=== PATIENT | female | born 1985 | race Native Hawaiian/Other Pacific Islander ===

== ENCOUNTER 2017-06-08 07:09 | Inpatient (IN) | payer OTHER ==
[2017-06-08 07:42] VITALS: BMI 43.0
[2017-06-08] MEDS ORDERED: ceFAZolin 2 GM in Sodium Chloride 0.9% 100 ML IVPB ONE (07:42)
[2017-06-08] MEDS ORDERED: Morphine 1 mg/ml preservative-free Inj(Duramorph) ONE (07:45)
[2017-06-08] MEDS ORDERED: ePHEDrine 50 mg/ml Inj ONE (07:50)
[2017-06-08] MEDS: Lactated Ringer's 1,000 ML IV SCH ×2 (08:00→11:20)
[2017-06-08] MEDS ORDERED: Oxytocin 30 units/LR 500ML 30 U/500 ML BAG IV ONE (08:16)
--- NOTE | 2017-06-08 08:18 | OBADHP ---
Datetime: 06/08/2017 07:57 Admit Comment, IP Provider: Ange Braden at 36 weeks and 2 days gestational age presents to the ED comp laining of gush of fluid. Patient also complains of occasional contraction. No vaginal bleeding. Yissel ent reports good movement. Otherwise, patient without complaints. records reviewed. Past medical history gestational diabetes, class AI Past surgical history 1 Medications vitamins No known drug allergies Social history no tobacco, no alcohol, no drugs Physical exam: Deferred physical exam findings Assessment: 001 at 36 weeks and 2 days gestational age with spontaneous rupture of membranes and prior C -section. heart tracing reassuring. Maternal well-being and well-being reassuring at thi s time. Plan: Discussed with patient options including expected management and trial of labor as well as repeat section. After discussion of options, patient opting for repeat section. Discussed with patient the risks, benefits, alternatives of surgery. All patient questions answered. Anesthesia notified. Pelvic Type - PN: Adequate Extremities - PN: Normal Abdomen - PN: Normal Back - PN: Normal Breast - PN: Normal Lungs - PN: Normal Heart - PN: Normal Thyroid - PN: Normal Neurologic - PN: Normal HEENT - PN: Normal General - PN: Normal FHR - Baseline A Provider: 140s Membranes, Provider: Intact Contraction Comments Provider: irregular Comments, ACOG Physical Exam: Cervix: Long, closed, posterior Positive fluid, grossly ruptured on exam No blood, no discharge Pool Provider: Negative IP Hx Assessment: The History has been Reviewed and is Current Vital Signs Provider: Reviewed; Within Normal Limits IP Chief Complaint: Uterine contractions; Suspected ruptured membranes NICHD Variability Prov Fetus A: Moderate 6-25bpm NICHD Accel Fetus A IP Provider: [id number] FHR Category Provider Fetus A: Category I NICHD Decel Fetus A IP Provider: None Dilatation, Provider: 0 Effacement, Provider: 0 Station, Provider: -3 Genitourinary Exam: Normal DTRs - PN: Normal EGA AdmitDate IP: 36.2 IP Adm Impression: , intrauterine ; No Active Labor; Ruptured Membranes IP Admit Plan: Admit to unit; Initiate Section protocol
[2017-06-08 08:20] LABS: BASO % 0.2 % (0.0-2.0); EOS # 0.1 K/uL (0.0-0.7); EOS % 0.8 % (0.0-4.0); HEMATOCRIT 34.6 % (34.0-47.0); LYMPH # 1.4 K/uL (1.0-4.3); LYMPH % 17.8 % (20.0-40.0); MEAN CELL VOLUME 74.2 fl (81.0-99.0); MEAN CORPUSCULAR HEMOGLOBIN 23.7 pg (27.0-31.0); MEAN CORPUSCULAR HGB CONC 31.9 g/dL (33.0-37.0); MEAN PLATELET VOLUME 8.9 fl (7.2-11.7); MONO # 0.5 K/uL (0.0-0.8); MONO % 6.3 % (0.0-10.0); NEUT # 6.1 K/uL (1.8-7.0); NEUT % 74.9 % (50.0-75.0); RED CELL DISTRIBUTION WIDTH 16.3 % (11.5-14.5); WHITE BLOOD COUNT 8.2 K/uL (4.8-10.8)
[2017-06-08 08:33] LABS: BLOOD UREA NITROGEN 7 mg/dl (7-17); CALCIUM 9.2 mg/dL (8.4-10.2); CARBON DIOXIDE 20 mmol/L (22-30); CHLORIDE 107 mmol/L (98-107); GFR AFRICAN-AMERICAN > 60; GLUCOSE,RANDOM 108 mg/dL (65-105); POTASSIUM 3.9 MMOL/L (3.6-5.0); SODIUM 136 mmol/l (132-148)
[2017-06-08] MEDS ORDERED: Oxycodone/Acetaminophen 5/325 mg Tab PO PRN ×3 (09:34→14:07)
--- NOTE | 2017-06-08 09:44 | OBDS ---
DELIVERY PERSONNEL Delivery Doctor: Torito Christy MD Metal Temperer: Yolande Edward RN Anesthesiologist: Tulio Davis MD MATERNAL INFORMATION Delivery Anesthesia: Spinal Medications in Delivery: 30 units pitocin in 500 ml lr Estimated Blood Loss (ml): 800 Placenta Cultured: Yes Maternal Complications: None Provider Comments: Repeat low flap transverse via Pfannenstiel incision. Patient delivered viable infant male with Apgars of 9 and 9 at one and 5 minutes respectively. Nor mal uterus, normal tubes and ovaries bilaterally. Moderate amount of intra-abdominal and pelvic adhes ions. Estimated blood loss 800 mL Fluids 1500 mL lactated Ringer's Urine output 300 mL of clear urine at end of procedure No complications LABOR SUMMARY EDC: 07/04/2017 00:00 No. Babies in Womb: 1 Attempted: No Labor Anesthesia: Intrathecal LABOR INFORMATION Reason for Induction: Not Applicable Oxytocin: N/A Group B Beta Strep: Done, Result Unknown Antibiotics # of Doses: 1 Steroids Given: None Reason Steroids Not Administered: Not Applicable MEMBRANES Membranes Rupture Method: Spontaneous Rupture of Membranes: 06/08/2017 06:00 Length of Rupture (hrs): 2.92 Amniotic Fluid Color: Clear Amniotic Fluid Amount: Small Amniotic Fluid Odor: Normal STAGES OF LABOR Stage 3 hrs: 0 Stage 3 min: 1 VAGINAL DELIVERY Episiotomy: None Laceration Extension: N/A Laceration Type: None Sponge Count Correct: N/A CSECTION DELIVERY Primary Indication: Repeat Elective Secondary Indication: Other Other Secondary Indication: SROM CSection Urgency: Non Elective CSection Incidence: Repeat Labor: Labor Elective: Nonelective CSection Incision: Lower Uterine Transverse BABY A INFORMATION Delivery Date/Time: 06/08/2017 08:55 Method of Delivery: Born in Route : No : N/A Forceps: N/A Vacuum Extraction: N/A Shoulder Dystocia : No SHOULDER DYSTOCIA BABY A Delivery Date/Time: 06/08/2017 08:55 PRESENTATION/POSITION BABY A Presentation: Cephalic Cephalic Presentation: Vertex Vertex Position: Left Occipital Anterior Breech Presentation: N/A PLACENTA INFORMATION BABY A Placenta Delivery Time : 06/08/2017 08:56 Placenta Method of Delivery: Spontaneous Placenta Status: Delivered SCORES BABY A Heart Rate 1 min: >100 bpm Resp Effort 1 min: Good Cry Reflex Irritability 1 min: Cough or Sneeze or Pulls Away Muscle Tone 1 min: Active Motion Color 1 min: Body [employer], Extremities Blue SCORE 1 MIN: 9 INFANT INFORMATION BABY A Gestational Age at Delivery: 36.2 Gestational Status: Outcome : Liveborn Condition : Stable Infant Sex: Male WEIGHT/LENGTH BABY A Birthweight (gms): 3400 Weight (lb): 7 Weight (oz): 8 CORD INFORMATION BABY A No. Cord Vessels: 3 Nuchal Cord : N/A Cord Blood Taken: Yes Suction: Mouth; Nose ASSESSMENT BABY A Complications: None Physical Findings at Delivery: Other Physical Findings Other: L Club Foot Infant Respirations: Appears Normal Director Of Bands/ALS Called : No Care By: Nisa Saucedo RN/Dr Villarreal Transferred To: Nursery
[2017-06-08] MEDS ORDERED: Simethicone 80 mg Chewtab PO SCH (10:00)
[2017-06-08] MEDS ORDERED: Lactated Ringer's 1,000 ML IV SCH ×2 (12:00→14:07)
[2017-06-08] MEDS ORDERED: DiphenhydrAMINE 50 mg/ml Inj ONE (12:07)
[2017-06-08] MEDS ORDERED: DiphenhydrAMINE 50 mg/ml Inj IVP PRN ×2 (12:15→14:07)
[2017-06-08] MEDS: Simethicone 80 mg Chewtab PO SCH ×2 (17:49→21:20)
[2017-06-08] MEDS: Oxycodone/Acetaminophen 5/325 mg Tab PO PRN (21:23)
[2017-06-09 00:40] VITALS: BP 117/76; PULSE 100; RESP 20; TEMP 98.5; O2SAT 98
[2017-06-09] MEDS: Oxycodone/Acetaminophen 5/325 mg Tab PO PRN ×4 (03:02→22:02)
[2017-06-09] MEDS: Simethicone 80 mg Chewtab PO SCH ×4 (04:15→22:00)
[2017-06-09 07:50] LABS: HEMATOCRIT 28.3 % (34.0-47.0); MEAN CELL VOLUME 74.1 fl (81.0-99.0); MEAN CORPUSCULAR HEMOGLOBIN 23.8 pg (27.0-31.0); MEAN CORPUSCULAR HGB CONC 32.1 g/dL (33.0-37.0); RED CELL DISTRIBUTION WIDTH 16.8 % (11.5-14.5); WHITE BLOOD COUNT 9.9 K/uL (4.8-10.8)
[2017-06-09] MEDS ORDERED: Enoxaparin 40 mg Syringe SC SCH (09:00)
[2017-06-09] MEDS: Enoxaparin 40 mg Syringe SC SCH (11:00)
--- NOTE | 2017-06-09 11:52 | OBPPN ---
Datetime: 06/09/2017 11:48 PP Pain Prov: Within normal limits PP Nausea Prov: Denies PP Flatus Prov: Yes PP BM Prov: No PP Breasts Prov: Normal PP Heart Prov: Normal PP Lungs Prov: Normal PP Abdomen/Uterus Prov: Normal PP Lochia Prov: Normal PP Vulva/Perineum Prov: Normal PP CVA Tenderness Prov: Normal PP Extremities Prov: Normal PP C/S Incision Prov: Normal PP Progress Prov: Normal PP Impression Prov: Normal progression PP Plan Prov: Continue present management PP Progress Note Prov: She feels fine. No probelms this AM. No SOB; no Dizziness / A: S/P day 1 repeat Anemia Asymptomatic PLAN: Cont postop care Vital Signs Provider PP: Reviewed; Within Normal Limits
[2017-06-10] MEDS: Oxycodone/Acetaminophen 5/325 mg Tab PO PRN ×3 (05:15→18:14)
[2017-06-10] MEDS: Simethicone 80 mg Chewtab PO SCH ×4 (05:16→21:24)
[2017-06-10] MEDS: Enoxaparin 40 mg Syringe SC SCH (09:32)
--- NOTE | 2017-06-10 10:47 | OBPPN ---
Datetime: 06/10/2017 10:42 PP Pain Prov: Within normal limits PP Nausea Prov: Denies PP Flatus Prov: Yes PP Breasts Prov: Not Done PP Heart Prov: Normal PP Lungs Prov: Normal PP Abdomen/Uterus Prov: Normal PP Lochia Prov: Not Done PP Vulva/Perineum Prov: Not Done PP CVA Tenderness Prov: Normal PP Extremities Prov: Normal PP C/S Incision Prov: Normal PP Impression Prov: Normal progression PP Progress Note Prov: Patient doing well pain well controlled ambulating tolerating diet and voidin g without difficulty passing flatus Vital signs stable afebrile Uterus firm below the umbilicus Incision clean dry and intact Extremities no Homans Postoperative day #2 Encourage ambulation Analgesia as needed Anticipate discharge in a.m. Vital Signs Provider PP: Reviewed
[2017-06-11] MEDS: Simethicone 80 mg Chewtab PO SCH ×2 (05:10→10:05)
[2017-06-11] MEDS: Enoxaparin 40 mg Syringe SC SCH (10:09)
--- NOTE | 2017-06-11 12:58 | OBPPN ---
Datetime: 06/11/2017 12:54 PP Pain Prov: Within normal limits PP Nausea Prov: Denies PP Flatus Prov: Yes PP Breasts Prov: Normal PP Heart Prov: Normal PP Lungs Prov: Normal PP Abdomen/Uterus Prov: Normal PP Lochia Prov: Normal PP Vulva/Perineum Prov: Normal PP CVA Tenderness Prov: Normal PP Extremities Prov: Normal PP Comments Phys Exam Prov: Fundus firm under umbilicus Incision clean/dry/intact PP Impression Prov: Normal progression PP Plan Prov: Continue present management PP Progress Note Prov: Patient denies CP, no SOB, no N/V, tolerating PO diet, ambulating/voiding wel l, mild lochia, +flatus, +BM, abdominal pain tolerable with meds A/P POD #3 1. Discharge patient home 2. Discharge instructions reviewed IP PP Procedures: None Vital Signs Provider PP: Reviewed; Within Normal Limits
--- NOTE | 2017-07-11 19:45 | OP ---
DATE OF OPERATION: 06/08/2017 PREOPERATIVE DIAGNOSES: Prior caesarean section, active labor, spontaneous rupture of membranes. OPERATION PERFORMED: Repeat low-flap transverse section via Pfannenstiel incision. OPERATIVE FINDINGS: Viable male with Apgars of 9 and 9 at 1 and 5 minutes respectively, normal uterus, normal tubes, and ovaries bilaterally. Moderate amount of intraabdominal and pelvic adhesions. ESTIMATED BLOOD LOSS: 800 mL. FLUID: 1500 mL of lactated Ringer's. URINE OUTPUT: 300 mL of clear urine at the end of procedure. SURGEON: Dr. Torito Christy. COMMUNITY RELATIONS ASSISTANT: Dr. Nghia Yuen. Dr. Yuen was present from the beginning of the procedure to the end of procedure. Dr. Dr. Yuen was integral in exposing the surgical field, controlling intraoperative bleeding, removal of adhesions, and manual delivery of the infant. ANESTHESIA: Spinal. ANESTHESIOLOGIST: Dr. Davis. COMPLICATIONS: None. DESCRIPTION OF PROCEDURE: The patient was taken to the operating room, where spinal anesthesia was found to be adequate. The patient was prepped and draped in normal sterile fashion in the dorsal supine position with leftward tilt. A Pfannenstiel skin incision was made with scalpel. This was carried down through to the underlying layer of fascia with scalpel. Midline dissection was made in fascial layer with the scalpel. The fascial incision was then extended bilaterally sharply with curved Jimenez scissors. The fascial layer was from the underling rectus muscles both bluntly and sharply with curved Jimenez scissors. The rectus muscles were at the midline. The peritoneum was then identified, tented up with Gretchen clamps x2, entered sharply with Metzenbaum scissors. This peritoneal incision was then extended superiorly and inferiorly with good visualization of the urinary bladder. Bladder blade was inserted into the abdomen. The vesicouterine peritoneum was then identified, tented up with Gretchen clamps x2, entered sharply with Metzenbaum scissors. This peritoneal incision was then extended bilaterally sharply with Metzenbaum scissors. The Marilynn retractors were placed over the urinary bladder. The bladder flap was created digitally. The Marilynn retractors were placed over the urinary bladder. The uterus was incised with a scalpel. The uterine incision was extended bilaterally bluntly. The infant's head was delivered atraumatically. Nose and mouth were suctioned with bulb suction. The remainder of the infant was delivered without complication. The cord was clamped and cut. The was handed off to awaiting pediatricians. The placenta was removed manually. The uterus was cleared of all clots and debris. The uterine incision was repaired with 0 Vicryl in a running, locked fashion. Second layer of the same suture was used to imbricate the first and to obtain excellent hemostasis. Reinspection of the uterine incision proved excellent hemostasis. The abdomen and pelvis were irrigated with a copious amounts of warm normal saline. Reinspection of the uterine incision proved hemostasis. All instruments were removed from the patient. The peritoneal layer was closed with a running stitch of 2-0 chromic. The rectus muscle was re approximated at the midline with a running stitch of 2-0 chromic. The fascial layer was reapproximated with a running suture of 0 Vicryl. Subcutaneous tissue was closed with a running stitch of 3-0 plain. The skin was closed with subcutaneous stitch of 3.0 Vicryl. The patient tolerated the procedure well. All sponge, lap count, and needle counts were correct x2. There were no complications. The patient was given 2 gm of Ancef just prior to the beginning of the procedure. The patient was taken to recovery room in awake and stable condition. Kevin Christy MD
== END 2017-06-11 14:23 | disposition home or self-care (01) | DRG 651 ==
LOC: H.EROB2 07:09 → H.EROB 07:44 → H.OB/GYN 13:45
PROVIDERS: ADMIT Obstetrics & Gynecology; ATTEND Obstetrics & Gynecology
PROC: 10D00Z1 Extraction of Products of Conception, Low, Open Approach (ICD-10-PCS; principal; 2017-06-08)
PROC: 4A1HXCZ Monitoring of Products of Conception, Cardiac Rate, External Approach (ICD-10-PCS; 2017-06-08)
DX: O60.14X0 Preterm labor third trimester with preterm delivery third trimester, not applicable or unspecified (principal); O34.211 Maternal care for low transverse scar from previous cesarean delivery; N73.6 Female pelvic peritoneal adhesions (postinfective); O99.89 Other specified diseases and conditions complicating pregnancy, childbirth and the puerperium; Z3A.36 36 weeks gestation of pregnancy; Z37.0 Single live birth; Z86.32 Personal history of gestational diabetes

== ENCOUNTER 2017-12-22 08:46 | Emergency (ER) | payer OTHER ==
[2017-12-22 08:46] VITALS: BMI 31.9
[2017-12-22 09:04] VITALS: BP 150/94; PULSE 103; TEMP 98.6; O2SAT 100
[2017-12-22 09:17] VITALS: RESP 16
--- NOTE | 2017-12-22 09:24 | ED PDOC ---
HPI: Female Pain Time Seen by Provider: 12/22/17 09:02 Chief Complaint (Nursing): Female Genitourinary History Per: Patient Onset/Duration Of Symptoms: Days (7) Current Symptoms Are (Timing): Better Severity: None Additional Complaint(s): Referred by PMD LMP Nov 06, vag bleeding x 1 week early November which has since stopped. No abd pain or cramping. US in office revealed no IUP but Beta HCG has continued to rise. Referred to r/o ectopic Abnormal Vaginal Bleeding: Yes Past Medical History Vital Signs: Last Vital Signs Temp 98.6 F 12/22/17 09:11 Pulse 103 H 12/22/17 09:11 Resp 16 12/22/17 09:11 BP 150/94 H 12/22/17 09:11 Pulse Ox 100 12/22/17 09:11 - Medical History PMH: No Chronic Diseases Denies: Chronic Kidney Disease - Family History Family History: States: Unknown Family Hx - Home Medications Home Medications: Ambulatory Orders Medication Instructions Recorded Vit No.126/Iron/Folic 1 tab PO DAILY 06/08/17 [Classic Tablet] - Allergies Allergies/Adverse Reactions: Allergies Allergy/AdvReac Type Severity Reaction Status Date / Time No Known Allergies Allergy Verified 12/22/17 09:11 Review of Systems Constitutional: Negative for: Fever Gastrointestinal: Negative for: Abdominal Pain Genitourinary Female: Negative for: Dysuria, Frequency, Vaginal Bleeding Physical Exam - Physical Exam Appears: Positive for: Non-toxic, No Acute Distress Skin: Positive for: Normal Color, Warm, DRY Cardiovascular/Chest: Positive for: Regular Rate, Rhythm Gastrointestinal/Abdominal: Positive for: Bowel Sounds, Soft. Negative for: Tenderness Pelvic Exam: Positive for: External Exam Normal, No Masses. Negative for: Active Bleeding, Tender Adnexa, Tender Uterus - Laboratory Results Result Diagrams: 12/22/17 10:00 12/22/17 10:00 - ECG O2 Sat by Pulse Oximetry: 100 Disposition - Clinical Impression Clinical Impression: Threatened miscarriage - Patient ED Disposition Is Patient to be Admitted: No Counseled Patient/Family Regarding: Studies Performed, Diagnosis, Need For Followup, Rx Given - Disposition Referrals: Kevin Christy MD [Staff Provider] - Disposition: Routine/Home Disposition Time: 12:19 Condition: FAIR Additional Instructions: Repeat Beta HCG and ultrasound Sunday12/24/2017 Instructions: Threatened Miscarriage (ED) Forms: [facility] (E[place]ian)
[2017-12-22 10:39] LABS: BASO % 0.3 % (0.0-2.0); EOS # 0.1 K/uL (0.0-0.7); EOS % 1.7 % (0.0-4.0); HEMOGLOBIN 12.6 g/dL (12.0-16.0); LYMPH # 1.5 K/uL (1.0-4.3); LYMPH % 18.3 % (20.0-40.0); MEAN CELL VOLUME 85.4 fl (81.0-99.0); MEAN CORPUSCULAR HGB CONC 32.7 g/dL (33.0-37.0); MONO # 0.4 K/uL (0.0-0.8); MONO % 4.6 % (0.0-10.0); NEUT % 75.1 % (50.0-75.0); RBC 4.5 Mil/uL (3.80-5.20); RED CELL DISTRIBUTION WIDTH 13.5 % (11.5-14.5)
[2017-12-22 10:57] LABS: ALB/GLOB RATIO 1.2 (1.0-2.1); ALBUMIN 4.2 g/dL (3.5-5.0); ALT/SGPT 44 U/L (9-52); AST/SGOT 31 U/L (14-36); BLOOD UREA NITROGEN 8 mg/dl (7-17); CALCIUM 9.4 mg/dL (8.4-10.2); GFR AFRICAN-AMERICAN > 60; GFR NON-AFRICAN AMERICAN > 60
--- NOTE | 2017-12-22 11:47 | US ---
HISTORY: Rule out ectopic COMPARISON: None available. TECHNIQUE: Transvaginal sonographic evaluation of the pelvis performed FINDINGS: UTERUS: The uterus is anteverted measuring approximately 7.5 x 3.5 x 5.5 cm. There is an intrauterine gestational sac with measurements as follows: . Gestational sac: MSD = 0.5 cm = out of range. Yolk sac: 0.09 cm No pole or subsequent heart rate detected. Follow-up OB ultrasound recommended to assess for development of viable intrauterine gestation ENDOMETRIUM: Measures mm in diameter. Unremarkable. CERVIX: The cervix measures approximately 3.6 cm. . 1.1 cm cervical nabothian cyst present. RIGHT OVARY: Measures approximately 3.7 x 2.4 x 2.7 cm. No solid mass. Normal flow. . There are several cysts the largest measuring approximately 1.2 x 0.9 x 1.0 cm LEFT OVARY: Measures approximately 2.5 x 2.3 x 2.0 cm. No solid mass. Normal flow. FREE FLUID: No significant free fluid noted. OTHER FINDINGS: None. IMPRESSION: There is an intrauterine gestational sac with measurements as follows: . Gestational sac: MSD = 0.5 cm = out of range. Yolk sac: 0.09 cm No pole or subsequent heart rate detected. Follow-up serial serum beta HCG and pelvic ultrasound recommended to assess for development of viable intrauterine gestation
--- NOTE | 2017-12-22 12:38 | CP.PCM.CON ---
<Jerald Nichols - Last Filed: 12/22/17 12:25> History of Present Illness - History of Present Illness History of Present Illness: OBGYN Consult Note: 32 y/o F with at 6 weeks gestation, suspected to be an ectopic, presents to ED for f/u of BHCG. Reports occasional nausea and vomiting. Denies abdominal pain or vaginal bleeding. OBHx significant for 2 prior C sections (2016, 2014) PMHx: Denies No RX meds Allergies: NKDA FamHx: Denies Social: Denies habits x3 Labs/Imaging: Beta HCG (12/11): 41. Today reported to be 2190. Transvaginal U/S: Intrauterine gestational sac visible, 0.5cm, Verbal report from ED Attending, Dr. Perez- possible Cesarian Scar . Recommendation: Pt advised to return to ED in 2 days to f/u BHCG and repeat sonogram. ED precautions given. Unysom and B complex for [place]. Pt verbalized understanding. Discussed case with OB Attending Dr. Garcia and Dr. Christy. Review of Systems - Constitutional Constitutional: absent: Chills, Fever - Cardiovascular Cardiovascular: absent: Chest Pain - Respiratory Respiratory: absent: Dyspnea - Gastrointestinal Gastrointestinal: Nausea, Vomiting. absent: Abdominal Pain - Menstruation Additional comments: No Vaginal Bleeding Past Patient History - Past Social History Smoking Status: Never Smoked - CARDIAC Hx Cardiac Disorders: No - PULMONARY Hx Respiratory Disorders: No - NEUROLOGICAL Hx Neurological Disorder: No - HEENT Hx HEENT Problems: No - RENAL Hx Chronic Kidney Disease: No - ENDOCRINE/METABOLIC Hx Endocrine Disorders: No - HEMATOLOGICAL/ONCOLOGICAL Hx Blood Disorders: No - INTEGUMENTARY Hx Dermatological Problems: No - MUSCULOSKELETAL/RHEUMATOLOGICAL Hx Musculoskeletal Disorders: No - GASTROINTESTINAL Hx Gastrointestinal Disorders: No - GENITOURINARY/GYNECOLOGICAL Hx Genitourinary Disorders: No - PSYCHIATRIC Hx Psychophysiologic Disorder: No Hx Substance Use: No - SURGICAL HISTORY Hx Surgeries: No Hx Section: Yes (x2) - ANESTHESIA Hx Anesthesia: Yes Hx Anesthesia Reactions: No Meds Allergies/Adverse Reactions: Allergies Allergy/AdvReac Type Severity Reaction Status Date / Time No Known Allergies Allergy Verified 12/22/17 09:11 Physical Exam - Constitutional Appears: Well, Non-toxic, No Acute Distress - ENT Exam ENT Exam: Mucous Membranes Moist - Respiratory Exam Respiratory Exam: Clear to Auscultation Bilateral - Cardiovascular Exam Cardiovascular Exam: REGULAR RHYTHM, +S1, +S2. absent: Systolic Murmur - GI/Abdominal Exam GI & Abdominal Exam: Normal Bowel Sounds, Soft. absent: Tenderness - Psychiatric Exam Psychiatric exam: Normal Mood - Skin Skin Exam: Normal Color Results - Vital Signs Recent Vital Signs: Last Vital Signs Temp 98.6 F 12/22/17 09:11 Pulse 103 H 12/22/17 09:11 Resp 16 12/22/17 09:11 BP 150/94 H 12/22/17 09:11 Pulse Ox 100 12/22/17 12:20 - Labs Result Diagrams: 12/22/17 10:00 12/22/17 10:00 Labs: Laboratory Results - last 24 hr 12/22/17 12/22/17 12/22/17 10:00 10:00 10:00 WBC 8.0 RBC 4.50 Hgb 12.6 D Hct 38.4 MCV 85.4 D MCH 28.0 MCHC 32.7 L RDW 13.5 Plt Count 230 MPV 9.0 Neut % (Auto) 75.1 H Lymph % (Auto) 18.3 L [place] % (Auto) 4.6 Eos % (Auto) 1.7 Baso % (Auto) 0.3 Neut # (Auto) 6.0 Lymph # (Auto) 1.5 [place] # (Auto) 0.4 Eos # (Auto) 0.1 Baso # (Auto) 0.0 Sodium 141 Potassium 4.2 Chloride 104 Carbon Dioxide 22 Anion Gap 19 BUN 8 Creatinine 0.6 L Est GFR ( Amer) > 60 Est GFR (Non-Af Amer) > 60 Random Glucose 117 H Calcium 9.4 Total Bilirubin 0.4 AST 31 ALT 44 Alkaline Phosphatase 110 Total Protein 7.8 Albumin 4.2 Globulin 3.6 Albumin/Globulin Ratio 1.2 Beta HCG, Quant 2190.30 Blood Type Cancelled Antibody Screen Cancelled BBK History Checked Cancelled 12/22/17 11:04 WBC RBC Hgb Hct MCV MCH MCHC RDW Plt Count MPV Neut % (Auto) Lymph % (Auto) [place] % (Auto) Eos % (Auto) Baso % (Auto) Neut # (Auto) Lymph # (Auto) [place] # (Auto) Eos # (Auto) Baso # (Auto) Sodium Potassium Chloride Carbon Dioxide Anion Gap BUN Creatinine Est GFR ( Amer) Est GFR (Non-Af Amer) Random Glucose Calcium Total Bilirubin AST ALT Alkaline Phosphatase Total Protein Albumin Globulin Albumin/Globulin Ratio Beta HCG, Quant Blood Type B POSITIVE Antibody Screen Negative BBK History Checked Patient has bt <Marcelino Garcia - Last Filed: 12/23/17 10:00> Results - Vital Signs Recent Vital Signs: Last Vital Signs Temp 98.6 F 12/22/17 09:11 Pulse 103 H 12/22/17 09:11 Resp 16 12/22/17 09:11 BP 150/94 H 12/22/17 09:11 Pulse Ox 100 12/22/17 12:20 - Labs Result Diagrams: 12/22/17 10:00 12/22/17 10:00 Labs: Laboratory Results - last 24 hr 12/22/17 12/22/17 12/22/17 10:00 10:00 10:00 WBC 8.0 RBC 4.50 Hgb 12.6 D Hct 38.4 MCV 85.4 D MCH 28.0 MCHC 32.7 L RDW 13.5 Plt Count 230 MPV 9.0 Neut % (Auto) 75.1 H Lymph % (Auto) 18.3 L [place] % (Auto) 4.6 Eos % (Auto) 1.7 Baso % (Auto) 0.3 Neut # (Auto) 6.0 Lymph # (Auto) 1.5 [place] # (Auto) 0.4 Eos # (Auto) 0.1 Baso # (Auto) 0.0 Sodium 141 Potassium 4.2 Chloride 104 Carbon Dioxide 22 Anion Gap 19 BUN 8 Creatinine 0.6 L Est GFR ( Amer) > 60 Est GFR (Non-Af Amer) > 60 Random Glucose 117 H Calcium 9.4 Total Bilirubin 0.4 AST 31 ALT 44 Alkaline Phosphatase 110 Total Protein 7.8 Albumin 4.2 Globulin 3.6 Albumin/Globulin Ratio 1.2 Beta HCG, Quant 2190.30 Blood Type Cancelled Antibody Screen Cancelled BBK History Checked Cancelled 12/22/17 11:04 WBC RBC Hgb Hct MCV MCH MCHC RDW Plt Count MPV Neut % (Auto) Lymph % (Auto) [place] % (Auto) Eos % (Auto) Baso % (Auto) Neut # (Auto) Lymph # (Auto) [place] # (Auto) Eos # (Auto) Baso # (Auto) Sodium Potassium Chloride Carbon Dioxide Anion Gap BUN Creatinine Est GFR ( Amer) Est GFR (Non-Af Amer) Random Glucose Calcium Total Bilirubin AST ALT Alkaline Phosphatase Total Protein Albumin Globulin Albumin/Globulin Ratio Beta HCG, Quant Blood Type B POSITIVE Antibody Screen Negative BBK History Checked Patient has bt Assessment & Plan - Assessment and Plan (Free Text) Assessment: Early preg - ? ectopic - not acute abdomen Plan: will discharge home and follow up in 2d; sono to be reviewed with radiologist/ official report. Signs and symptoms of ectopic preg rev'd with patient. She understood and brian come to ER if she has any. - Date & Time Date: 12/22/17 Time: 12:30
== END 2017-12-22 12:28 | disposition home or self-care (01) ==
LOC: H.ER 08:46
DX: O20.0 Threatened abortion (principal)

== ENCOUNTER 2017-12-24 10:09 | Emergency (ER) | payer OTHER ==
[2017-12-24 10:09] VITALS: BMI 31.9
[2017-12-24 10:19] VITALS: BP 142/95; PULSE 96; RESP 18; TEMP 98; O2SAT 98
--- NOTE | 2017-12-24 11:55 | ED PDOC ---
HPI: General Adult Time Seen by Provider: 12/24/17 11:54 Chief Complaint (Nursing): Abnormal Labs Chief Complaint (Provider): Follow up History Per: Patient Additional Complaint(s): 32-year-old female presents to emergency department for follow-up evaluation of possible ectopic . She was seen 2 days ago and had ultrasound which showed possible ectopic . She was instructed to return today for repeat ultrasound and lab work. Patient denies any bleeding or pain at this time. OB: Dr. Christy Past Medical History Reviewed: Historical Data, Nursing Documentation, Vital Signs Vital Signs: Last Vital Signs Temp 98 F 12/24/17 10:17 Pulse 96 H 12/24/17 10:17 Resp 18 12/24/17 10:17 BP 142/95 H 12/24/17 10:17 Pulse Ox 98 12/24/17 15:27 - Medical History Other PMH: - Family History Family History: States: No Known Family Hx - Living Arrangements Living Arrangements: With Family - Social History Current smoker - smoking cessation education provided: No Alcohol: None Drugs: Denies - Home Medications Home Medications: Ambulatory Orders Medication Instructions Recorded Vit No.126/Iron/Folic 1 tab PO DAILY 06/08/17 [Classic Tablet] - Allergies Allergies/Adverse Reactions: Allergies Allergy/AdvReac Type Severity Reaction Status Date / Time No Known Allergies Allergy Verified 12/22/17 09:11 Review of Systems ROS Statement: Except As Marked, All Systems Reviewed And Found Negative Constitutional: Negative for: Fever, Chills Gastrointestinal: Negative for: Abdominal Pain Genitourinary Female: Negative for: Dysuria, Vaginal Discharge, Vaginal Bleeding Physical Exam - Reviewed Nursing Documentation Reviewed: Yes Vital Signs Reviewed: Yes - Physical Exam Appears: Positive for: Well, Non-toxic, No Acute Distress Skin: Negative for: Rash Cardiovascular/Chest: Positive for: Regular Rate, Rhythm Respiratory: Positive for: Normal Breath Sounds Gastrointestinal/Abdominal: Positive for: Soft. Negative for: Tenderness, Distended, Guarding, Rebound Extremity: Positive for: Normal ROM Neurologic/Psych: Positive for: Alert, Oriented - Laboratory Results Result Diagrams: 12/24/17 12:30 12/24/17 12:30 Urine POC: Positive - ECG O2 Sat by Pulse Oximetry: 98 Pulse Ox Interpretation: Normal - Other Rad OB TV US X-Ray: Read By Radiologist X-Ray Interpretation: see below Medical Decision Making Medical Decision Makin32 year old here for repeat labs and US Plan: OB TV US Beta quant CBC CMP Urine test and dip Beta has increased. US: FINDINGS: Cardiac activity: Present Rate: 95 BPM, Measurements: [employer] rump length: 0.21 cm, Gestational age based on CRL 5 weeks 5 days Gestational age out of range based on gestational sac measurement 0.77 cm, Gestational age derived from LMP: 6 weeks 6 days, ELLIOT based on LMP: 2017, ELLIOT based on biometry: 08/21/2018 Gestational concordance documented, Yolk sac identified. Uterus: Unremarkable. No Cervical abnormalities: Negative examination for cervical dilatation or effacement. Closed cervix measuring 4.54 cm. Subchorionic hemorrhage: None, UTERUS: 4.3 x 5.4 x 9.4 cm. ADNEXA: Right: 2.1 x 2.3 x 3.5 cm. Normal Doppler arterial waveform documented. Left: 2 x 2.7 x 2.9 cm. Normal Doppler arterial waveform documented. Fluid in the cul-de-sac: None, IMPRESSION: Single live intrauterine gestation. bradycardia. No visible ectopic gestation. OB is Dr. Christy, case was d/w Dr. Carranza who is equipment operation instructor for Dr. Christy. Dr. Carranza is aware of above results. She states to instruct patient to have repeat US in one week with Dr. Christy in office . Disposition - Clinical Impression Clinical Impression: Threatened - Patient ED Disposition Is Patient to be Admitted: No Counseled Patient/Family Regarding: Studies Performed, Diagnosis, Need For Followup - Disposition Referrals: Kevin Christy MD [Staff Provider] - Disposition: Routine/Home Disposition Time: 15:27 Condition: STABLE Additional Instructions: FOLLOW UP THIS WEEK WITH DR. CHRISTY IN HIS OFFICE. Instructions: Threatened Miscarriage (ED) Forms: [employer] (Kinyarwanda) Results - Lab Results Lab Results: 12/24/17 12/24/17 12:30 12:30 WBC 6.7 RBC 4.48 Hgb 12.7 Hct 37.5 MCV 83.8 MCH 28.4 MCHC 33.9 RDW 13.2 Plt Count 254 MPV 8.8 Neut % (Auto) 69.3 Lymph % (Auto) 24.1 [place] % (Auto) 4.8 Eos % (Auto) 1.4 Baso % (Auto) 0.4 Neut # (Auto) 4.6 Lymph # (Auto) 1.6 [place] # (Auto) 0.3 Eos # (Auto) 0.1 Baso # (Auto) 0.0 Sodium 141 Potassium 4.7 Chloride 104 Carbon Dioxide 25 Anion Gap 17 BUN 10 Creatinine 0.5 L Est GFR ( Amer) > 60 Est GFR (Non-Af Amer) > 60 Random Glucose 108 H Calcium 9.6 Total Bilirubin 0.4 AST 41 H D ALT 49 Alkaline Phosphatase 116 Total Protein 8.1 Albumin 4.2 Globulin 3.9 Albumin/Globulin Ratio 1.1 Beta HCG, Quant 4517.50
[2017-12-24 12:58] LABS: BASO % 0.4 % (0.0-2.0); EOS # 0.1 K/uL (0.0-0.7); EOS % 1.4 % (0.0-4.0); HEMOGLOBIN 12.7 g/dL (12.0-16.0); LYMPH # 1.6 K/uL (1.0-4.3); LYMPH % 24.1 % (20.0-40.0); MEAN CELL VOLUME 83.8 fl (81.0-99.0); MEAN CORPUSCULAR HEMOGLOBIN 28.4 pg (27.0-31.0); MEAN CORPUSCULAR HGB CONC 33.9 g/dL (33.0-37.0); MEAN PLATELET VOLUME 8.8 fl (7.2-11.7); MONO # 0.3 K/uL (0.0-0.8); MONO % 4.8 % (0.0-10.0); NEUT # 4.6 K/uL (1.8-7.0); NEUT % 69.3 % (50.0-75.0); NRBC % 0.1 % (0.0-0.0); RBC 4.48 Mil/uL (3.80-5.20); RED CELL DISTRIBUTION WIDTH 13.2 % (11.5-14.5); WHITE BLOOD COUNT 6.7 K/uL (4.8-10.8)
[2017-12-24 13:15] LABS: ALB/GLOB RATIO 1.1 (1.0-2.1); ALBUMIN 4.2 g/dL (3.5-5.0); ALT/SGPT 49 U/L (9-52); AST/SGOT 41 U/L (14-36); BLOOD UREA NITROGEN 10 mg/dl (7-17); CALCIUM 9.6 mg/dL (8.4-10.2); GFR AFRICAN-AMERICAN > 60; GFR NON-AFRICAN AMERICAN > 60
--- NOTE | 2017-12-24 14:24 | US ---
HISTORY: possible ectopic COMPARISON: 12/22/2017 TECHNIQUE: Standard protocol for this study/examination. FINDINGS: LMP: 11/06/2017 Prior examinations from the current : 12/22/2017 TECHNIQUE: Real-time 2D imaging, duplex and color Doppler. FINDINGS: Cardiac activity: Present Rate: 95 BPM Measurements: [employer] rump length: 0.21 cm Gestational age based on CRL 5 weeks 5 days Gestational age out of range based on gestational sac measurement 0.77 cm Gestational age derived from LMP: 6 weeks 6 days ELLIOT based on LMP: 09/08/2018 ELLIOT based on biometry: 08/21/2018 Gestational concordance documented Yolk sac identified Uterus: Unremarkable. No Cervical abnormalities: Negative examination for cervical dilatation or effacement. Closed cervix measuring 4.54 cm Subchorionic hemorrhage: None UTERUS: 4.3 x 5.4 x 9.4 cm. ADNEXA: Right: 2.1 x 2.3 x 3.5 cm. Normal Doppler arterial waveform documented. Left: 2 x 2.7 x 2.9 cm. Normal Doppler arterial waveform documented Fluid in the cul-de-sac: None IMPRESSION: Single live intrauterine gestation. bradycardia. No visible ectopic gestation.
== END 2017-12-24 15:33 | disposition home or self-care (01) ==
LOC: H.ER 10:09
DX: O20.0 Threatened abortion (principal)

== ENCOUNTER 2018-07-04 18:35 | Emergency (ER) | payer OTHER ==
[2018-07-04 18:57] VITALS: BMI 35.7
[2018-07-04] MEDS ORDERED: Betamethasone Soluspan 30 mg/5mL Inj Susp IM ONE ×2 (19:01)
[2018-07-04] MEDS: Lactated Ringer's 1,000 ML IV SCH ×2 (19:05→20:15)
--- NOTE | 2018-07-04 19:12 | OBHP ---
Datetime: 07/04/2018 19:03 IP Adm Impression: , intrauterine ; No Active Labor IP Chief Complaint Other: steroid administration IP Admit Plan: Observation/Evaluation Admit Comment, IP Provider: 32-year-old weeks and 4 days gestational age presents to OB ED for scheduled steroid administration. Patient with diagnosis of placenta accreta. Patient without co mplaints at this time. Patient denies any contractions, vaginal bleeding, leakage of fluids. Patient reports good movement. Patient also with a history of gestational diabetes controlled with diet . Past medical history gestational diabetes Past surgical history 2 Medications vitamins No known drug allergies Obstetrical history full-term 1, repeat at 36 weeks with second Social history denies tobacco, drugs, alcohol Assessment: 33 weeks and 4 days gestational age with placenta accreta for scheduled steroid administration. Fe antonietta heart tracing reactive, no evidence of labor at this time. Plan: Patient to receive 1 dose of betamethasone and will return to OB ED in 24 hours for second dose. I discussed plan with patient all patient questions answered. Extremities - PN: Normal Back - PN: Normal Lungs - PN: Normal Heart - PN: Normal Neurologic - PN: Normal HEENT - PN: Normal General - PN: Normal FHR - Baseline A Provider: 130s-140s IP Chief Complaint: Other NICHD Variability Prov Fetus A: Moderate 6-25bpm NICHD Accel Fetus A IP Provider: [id number] FHR Category Provider Fetus A: Category I NICHD Decel Fetus A IP Provider: None
[2018-07-04 19:42] LABS: BASO % 0.3 % (0.0-2.0); EOS # 0.1 K/uL (0.0-0.7); EOS % 0.7 % (0.0-4.0); HEMOGLOBIN 9.6 g/dL (12.0-16.0); LYMPH # 1.5 K/uL (1.0-4.3); LYMPH % 16.1 % (20.0-40.0); MEAN CELL VOLUME 74.4 fl (81.0-99.0); MEAN CORPUSCULAR HEMOGLOBIN 24.6 pg (27.0-31.0); MEAN PLATELET VOLUME 8.5 fl (7.2-11.7); MONO # 0.5 K/uL (0.0-0.8); MONO % 5.6 % (0.0-10.0); NEUT # 7.3 K/uL (1.8-7.0); NEUT % 77.3 % (50.0-75.0); NRBC % 0.2 % (0.0-0.0); RBC 3.9 Mil/uL (3.80-5.20); RED CELL DISTRIBUTION WIDTH 15.8 % (11.5-14.5); WHITE BLOOD COUNT 9.4 K/uL (4.8-10.8)
[2018-07-04] MEDS ORDERED: Alum-Mag Hydrox-Simethicone Susp (30 mL) PO ONE (20:30)
--- NOTE | 2018-07-04 22:10 | OBHP ---
Datetime: 07/04/2018 21:44 IP Adm Impression: , intrauterine ; No Active Labor IP Chief Complaint Other: Steroid administration IP Admit Plan: Observation/Evaluation; Discharge home Admit Comment, IP Provider: Pt reevaluated. She is s/p 1st dose of betamethazone at 34.2wks Complete palcenta previa in current On observation for identified irregular contractions Patient reports that she is feeling well and is not feeling any contractions or pelvic pain. She denies any episode of vaginal bleeding or leakage of fluid. She reports she has 2 kids at home to take care of and would want to go home since she is not havi ng any pain. The need for prompt medical attention in the event of vaginal bleeding due to the placenta previa as well as the attendant possibility of profuse bleeding leading to and maternal compromise was discussed. Further monitoring would be needed but patient prefers to go home and return if she exper iences any vaginal bleeding or painful pelvic contractions. Patent verbalizes understatnding of the i ssues discussed. O: afebrile, BP 139/79 Heart: RRR Chest : Clinically Clear to auscultation B/L Abdomen:Soft .NT. BS- present, no boardlike rigidity FHR: 140s ,regular with moderate variabilities, Absent decels [place]: irregular contractions Pelvic: Defered Assessmet: IUP at 34 wks Placenta Previa S/P Betamethazone X1 dose Plan: - preclamptic labs set for mild elevation of BP - Iv hydration - will d/c home if normal labs - Bleeding instructions given/Return charles - Return tomorrow for 2nd dose of betamethazone. - F/U with OB as scheduled Pelvic Type - PN: Adequate Extremities - PN: Normal Abdomen - PN: Normal Back - PN: Normal Breast - PN: Normal Lungs - PN: Normal Heart - PN: Normal Thyroid - PN: Normal Neurologic - PN: Normal HEENT - PN: Normal General - PN: Normal FHR - Baseline A Provider: 130 Contraction Comments Provider: Irregular Gestation - Est Wks by US: 34.2 EGA AdmitDate IP: 34.2 Vital Signs Provider: Reviewed IP Chief Complaint: Uterine contractions; Other NICHD Variability Prov Fetus A: Moderate 6-25bpm NICHD Accel Fetus A IP Provider: 15X15 FHR Category Provider Fetus A: Category I NICHD Decel Fetus A IP Provider: None Genitourinary Exam: Normal DTRs - PN: Normal
[2018-07-04 22:42] LABS: ALBUMIN 3.4 g/dL (3.5-5.0); ALT/SGPT 31 U/L (9-52); AST/SGOT 22 U/L (14-36); BILIRUBIN,DIRECT 0.2 mg/ml (0.0-0.4); BLOOD UREA NITROGEN 7 mg/dl (7-17); CALCIUM 9.1 mg/dL (8.4-10.2); GFR NON-AFRICAN AMERICAN > 60; URIC ACID 2.7 mg/Dl (2.2-7.5)
[2018-07-04 22:44] LABS: INR 0.9; PROTHROMBIN TIME 10.4 Seconds (9.8-13.1)
[2018-07-04 22:46] LABS: PARTIAL THROMBOPLASTIN TIME 28.6 Seconds (25.6-37.1)
[2018-07-04 22:57] LABS: SQUAMOUS EPITHIAL < 1 /hpf (0-5); URINE BACTERIA RARE (<OCC); URINE BILIRUBIN NEGATIVE (NEGATIVE); URINE BLOOD NEGATIVE (NEGATIVE); URINE CLARITY SLIGHTY-CLOUDY (Clear); URINE COLOR STRAW (YELLOW); URINE GLUCOSE (UA) NEG (Normal); URINE LEUKOCYTE ESTERASE NEG Leu/uL (Negative); URINE PROTEIN NEGATIVE (NEGATIVE); URINE UROBILINOGEN 0.2-1.0 mg/dL (0.2-1.0)
[2018-07-05 03:31] VITALS: BP 147/85; PULSE 102; TEMP 98.8; O2SAT 100
== END 2018-07-04 22:00 | disposition home or self-care (01) ==
LOC: H.EROB2 18:35
DX: O43.212 Placenta accreta, second trimester (principal)
CPT/HCPCS: 80053; 81003; 82248; 84550; 85025; 85384; 85610; 85730; 86850; 86900; 96360; 99281; J0702; J7120

== ENCOUNTER 2018-07-05 19:31 | Emergency (ER) | payer OTHER ==
[2018-07-05 19:34] VITALS: BMI 33.4
[2018-07-05] MEDS ORDERED: Betamethasone Soluspan 30 mg/5mL Inj Susp IM ONE (19:42)
--- NOTE | 2018-07-05 20:55 | OBHP ---
Datetime: 07/05/2018 20:18 IP Adm Impression: , intrauterine IP Chief Complaint Other: Bethamethason Admit Comment, IP Provider: 32 year old 34.3 wk present to OB ED for her Sec dose of Steroid . Pt was diagnosed with placenta accreta. PT have no complaint at this time. PT denies contraction/va ginal bleed or discharge. Pt report good movement. Pt have GDM controlled with diet. PMH gestational DM PSH: C-Sec x2 Medication: vitamins No allergy OBHX Full-term c-sec x1, repeat c-sec at 36 wk with sec Social: denies tabacco, drugs or alcohol use Assessment 33wk and 4 days gestation age with placenta accreta present for sec dose of steroid. NST- Reactive no evidence of labor at this time. Plan: Patient to receive sec dose of betamethasone and will return for up visit with doctor on her next visit Plan discussed with pt, all questions were answered. Pt advised to come To ER if she have fever, chills, vaginal bleed, water fountain, frequent contra ction or decrease heart movement. Case discussed with Dr Vega. Myriam PGY1 Attending Note: Patient was seen and evaluated with the resident and I agree with the above assessment. FHR - Baseline A Provider: 135 Comments, ACOG Physical Exam: Pt is lying on bed comfortable with no acute distress Cardio: no extra heart sound Lung clear in all quadrant abd: BS+, nontender, fundos above umbilicus extremities: non tender Gestation - Est Wks by US: 34.3 EGA AdmitDate IP: 34.3 Vital Signs Provider: Reviewed; Within Normal Limits IP Chief Complaint: Other NICHD Variability Prov Fetus A: Moderate 6-25bpm NICHD Accel Fetus A IP Provider: 15X15 FHR Category Provider Fetus A: Category I NICHD Decel Fetus A IP Provider: None
[2018-07-06 03:19] VITALS: BP 138/78; PULSE 98
== END 2018-07-05 21:00 | disposition home or self-care (01) ==
LOC: H.EROB2 19:31
DX: O43.213 Placenta accreta, third trimester (principal); Z3A.34 34 weeks gestation of pregnancy
CPT/HCPCS: 96372; 99281; J0702

== ENCOUNTER 2018-07-12 06:14 | Inpatient (IN) | payer OTHER ==
[2018-07-12 06:30] VITALS: BMI 32.5
[2018-07-12] MEDS ORDERED: ceFAZolin 2 GM in Sodium Chloride 0.9% 100 ML IVPB ONE (06:30)
[2018-07-12] MEDS: Lactated Ringer's 1,000 ML IV ONE ×2 (06:45→07:20)
[2018-07-12] MEDS ORDERED: OXYTOCIN/0.9 % NS 20 UNIT/1,000 ML BAG IV ONE (07:03)
[2018-07-12] MEDS ORDERED: Oxytocin 30 UNIT 30 UNITS/500 ML BAG IV ONE ×2 (07:04→12:01)
[2018-07-12 07:05] LABS: BASO % 0.2 % (0.0-2.0); EOS # 0.1 K/uL (0.0-0.7); EOS % 1.3 % (0.0-4.0); HEMOGLOBIN 9.3 g/dL (12.0-16.0); LYMPH % 21.6 % (20.0-40.0); MEAN CELL VOLUME 73.7 fl (81.0-99.0); MEAN CORPUSCULAR HEMOGLOBIN 23.9 pg (27.0-31.0); MEAN CORPUSCULAR HGB CONC 32.5 g/dL (33.0-37.0); MEAN PLATELET VOLUME 8.4 fl (7.2-11.7); MONO # 0.5 K/uL (0.0-0.8); MONO % 5.9 % (0.0-10.0); NEUT # 6.7 K/uL (1.8-7.0); RBC 3.9 Mil/uL (3.80-5.20); RED CELL DISTRIBUTION WIDTH 16.4 % (11.5-14.5); WHITE BLOOD COUNT 9.4 K/uL (4.8-10.8)
[2018-07-12] MEDS ORDERED: Etomidate 20 mg/10ml Inj IV ONE (07:34)
[2018-07-12] MEDS ORDERED: ePHEDrine 50 mg/ml Inj ONE (07:34)
[2018-07-12] MEDS ORDERED: Succinylcholine 200 mg/10 ml Inj IV ONE (07:34)
[2018-07-12] MEDS ORDERED: Phenylephrine 10 mg/ml Inj ONE (07:34)
[2018-07-12] MEDS ORDERED: Morphine 1 mg/ml preservative-free Inj(Duramorph) ONE (07:37)
--- NOTE | 2018-07-12 07:54 | OBADHP ---
Datetime: 07/12/2018 07:48 IP Adm Impression Other: Placenta accreta Admit Comment, IP Provider: at 34 weeks and 5 days gestational age presents to L_D for [facility] ed due to placenta accreta. Patient will complaints at this time. Patient denies any contra ctions, vaginal bleeding, leakage of fluids. I discussed with patient the risks of surgery. Also, dis cussed with patient the risks of prematurity. All patient questions answered and patient consented fo r . Discussed the risks, benefits, alternatives. Past medical history gestational diabetes diet controlled Surgical history 2 Medications vitamins No known drug allergies Obstetrical history 2 Social history denies tobacco, drugs, alcohol Assessment: at 34 weeks and 5 days gestational age with placenta accreta. heart tracing category 1 . Plan: Patient previously received her steroid course Patient consented for hysterectomy Discussed with patient the risk of transfusion and risk of bleeding. All patient questions answered Neonatology present and discussing plan with patient Anesthesia notified Pelvic Type - PN: Adequate Extremities - PN: Normal Abdomen - PN: Normal Back - PN: Normal Breast - PN: Normal Lungs - PN: Normal Heart - PN: Normal Thyroid - PN: Normal Neurologic - PN: Normal HEENT - PN: Normal General - PN: Normal FHR - Baseline A Provider: 130s Contraction Comments Provider: q3-4min mild Vital Signs Provider: Reviewed; Within Normal Limits NICHD Variability Prov Fetus A: Moderate 6-25bpm NICHD Accel Fetus A IP Provider: 15X15 FHR Category Provider Fetus A: Category I NICHD Decel Fetus A IP Provider: None Genitourinary Exam: Normal DTRs - PN: Normal IP Adm Impression: , intrauterine ; No Active Labor IP Admit Plan: Admit to unit; Initiate Section protocol Datetime: 07/05/2018 20:18 IP Chief Complaint Other: Bethamethason Comments, ACOG Physical Exam: Pt is lying on bed comfortable with no acute distress Cardio: no extra heart sound Lung clear in all quadrant abd: BS+, nontender, fundos above umbilicus extremities: non tender Gestation - Est Wks by US: 34.3 IP Chief Complaint: Other EGA AdmitDate IP: 33.5
[2018-07-12] MEDS ORDERED: Ketamine 50 mg/ml Inj (10 ml) ONE (09:28)
[2018-07-12] MEDS ORDERED: Rocuronium 10 mg/ml (5 ml) ONE (09:46)
[2018-07-12] MEDS ORDERED: Neostigmine 1:1000 (1 mg/ml) Inj ONE (09:47)
[2018-07-12] MEDS ORDERED: Morphine 1 mg/ml preservative-free Inj(Duramorph) EPI ONE (11:14)
[2018-07-12] MEDS: HYDROmorphone 0.5 mg/0.5 ml ISec IVP PRN ×2 (11:18→12:28)
--- NOTE | 2018-07-12 11:54 | OBDS ---
DELIVERY PERSONNEL Delivery Doctor: Torito Christy MD Poultry Boner: Heavenly Quijano RN Anesthesiologist: Dr. Ortiz MATERNAL INFORMATION Delivery Anesthesia: Epidural; Spinal; General Medications in Delivery: Pitocin 30 units/ Methirgine 0.25ml Estimated Blood Loss (ml): 2000 Placenta Cultured: No Maternal Complications: Other RN Comments: Placenta accreta Provider Comments: with supracervical hysterectomy via Pfannenstiel incision. Patient rolly ered viable female with Apgars of 8 and 9 at one and 5 minutes respectively. Severe abdominal and pelvic adhesions. Severe adhesions between uterus and omentum and anterior abdominal wall. Eviden ce of placenta percreta, placenta visible through uterine wall. Estimated blood loss 2000 mL Fluids 4500 mL lactated Ringer's 2 units packed red blood cells infused intraoperatively Urine output 600 mL Bladder injury to the dome bladder repaired intraoperatively. After repair, bladder and insufflate d with methylene blue and repair proven intact. LABOR SUMMARY EDC: 08/18/2018 00:00 No. Babies in Womb: 1 Attempted: No Labor Anesthesia: None LABOR INFORMATION Reason for Induction: Not Applicable Oxytocin: N/A Group B Beta Strep: Done, Result Unknown Steroids Given: Full Course; > 24 Hours before Delivery Reason Steroids Not Administered: Indication; Maternal Indication; Imminent Delivery MEMBRANES Membranes Rupture Method: Spontaneous Rupture of Membranes: 07/12/2018 09:16 Length of Rupture (hrs): 0.00 Amniotic Fluid Color: Clear Amniotic Fluid Amount: Moderate Amniotic Fluid Odor: Normal STAGES OF LABOR Stage 3 hrs: 0 Stage 3 min: 1 CSECTION DELIVERY Primary Indication: Other Other Primary Indication: placenta accreta Secondary Indication: > 2 Previous CSections CSection Urgency: Elective CSection Incidence: Repeat Labor: No Labor Elective: Elective CSection Incision: Lower Uterine Transverse BABY A INFORMATION Infant Delivery Date/Time: 07/12/2018 09:16 Method of Delivery: Born in Route : No : N/A Forceps: N/A Shoulder Dystocia : No SHOULDER DYSTOCIA BABY A Infant Delivery Date/Time: 07/12/2018 09:16 PRESENTATION/POSITION BABY A Presentation: Cephalic Cephalic Presentation: Vertex Breech Presentation: N/A PLACENTA INFORMATION BABY A Placenta Delivery Time : 07/12/2018 09:17 Placenta Method of Delivery: Spontaneous Placenta Status: Delivered SCORES BABY A Heart Rate 1 min: >100 bpm Resp Effort 1 min: Good Cry Reflex Irritability 1 min: Cough or Sneeze or Pulls Away Muscle Tone 1 min: Active Motion Color 1 min: Blue/Pale Resuscitation Effort 1 min: Tactile Stimulation SCORE 1 MIN: 8 Heart Rate 5 min: >100 bpm Resp Effort 5 min: Good Cry Reflex Irritability 5 min: Cough or Sneeze or Pulls Away Muscle Tone 5 min: Active Motion Color 5 min: Body [place], Extremities Blue Resuscitation Effort 5 min: Tactile Stimulation SCORE 5 MIN: 9 INFANT INFORMATION BABY A Gestational Age at Delivery: 34.0 Gestational Status: Infant Outcome : Liveborn Infant Condition : Stable Sex: Female IDENTIFICATION/MEDS BABY A ID Band Number: [id number] ID Band Location: Left Leg; Left Arm WEIGHT/LENGTH BABY A Infant Birthweight (gms): 2775 Infant Weight (lb): 6 Infant Weight (oz): 2 CORD INFORMATION BABY A No. Cord Vessels: 3 Nuchal Cord : N/A Cord Blood Taken: N/A Infant Suction: None ASSESSMENT BABY A Complications: None Physical Findings at Delivery: Within Normal Limits Infant Respirations: Appears Normal Assistant Controller/ALS Called : Yes Infant Care By: Dr. Correa/Gil/Rachna Transferred To: NICU
[2018-07-12] MEDS ORDERED: Oxycodone/Acetaminophen 5/325 mg Tab PO PRN (11:55)
[2018-07-12] MEDS ORDERED: OXYTOCIN/0.9 % NS 20 UNIT/1,000 ML BAG IV SCH (12:15)
--- NOTE | 2018-07-12 12:26 | OBDS ---
DELIVERY PERSONNEL Delivery Doctor: Torito Christy MD Scrub Nurse: Stephania Kendrick Gsa Coordinator: Heavenly Quijano RN Anesthesiologist: Dr. Ortiz MATERNAL INFORMATION Delivery Anesthesia: Epidural; Spinal; General Medications in Delivery: Pitocin 30 units/ Methirgine 0.2mg Estimated Blood Loss (ml): 2000 Placenta Cultured: No Maternal Complications: Other RN Comments: Placenta accreta Provider Comments: with supracervical hysterectomy via Pfannenstiel incision. Patient rolly ered viable female with Apgars of 8 and 9 at one and 5 minutes respectively. Severe abdominal and pelvic adhesions. Severe adhesions between uterus and omentum and anterior abdominal wall. Eviden ce of placenta percreta, placenta visible through uterine wall. Estimated blood loss 2000 mL Fluids 4500 mL lactated Ringer's 2 units packed red blood cells infused intraoperatively Urine output 600 mL Bladder injury to the dome bladder repaired intraoperatively. After repair, bladder and insufflate d with methylene blue and repair proven intact. LABOR SUMMARY EDC: 08/18/2018 00:00 No. Babies in Womb: 1 Attempted: No Labor Anesthesia: None LABOR INFORMATION Reason for Induction: Not Applicable Oxytocin: N/A Group B Beta Strep: Done, Result Unknown Steroids Given: Full Course; > 24 Hours before Delivery Reason Steroids Not Administered: Indication; Maternal Indication; Imminent Delivery MEMBRANES Membranes Rupture Method: Spontaneous Rupture of Membranes: 07/12/2018 09:16 Length of Rupture (hrs): 0.00 Amniotic Fluid Color: Clear Amniotic Fluid Amount: Moderate Amniotic Fluid Odor: Normal STAGES OF LABOR Stage 3 hrs: 0 Stage 3 min: 1 CSECTION DELIVERY Primary Indication: Other Other Primary Indication: placenta accreta Secondary Indication: > 2 Previous CSections CSection Urgency: Elective CSection Incidence: Repeat Labor: No Labor Elective: Elective CSection Incision: Lower Uterine Transverse BABY A INFORMATION Delivery Date/Time: 07/12/2018 09:16 Method of Delivery: Born in Route : No : N/A Forceps: N/A Vacuum Extraction: N/A Shoulder Dystocia : No SHOULDER DYSTOCIA BABY A Delivery Date/Time: 07/12/2018 09:16 PRESENTATION/POSITION BABY A Presentation: Cephalic Cephalic Presentation: Vertex Breech Presentation: N/A PLACENTA INFORMATION BABY A Placenta Delivery Time : 07/12/2018 09:17 Placenta Method of Delivery: Spontaneous Placenta Status: Delivered SCORES BABY A Heart Rate 1 min: >100 bpm Resp Effort 1 min: Good Cry Reflex Irritability 1 min: Cough or Sneeze or Pulls Away Muscle Tone 1 min: Active Motion Color 1 min: Blue/Pale Resuscitation Effort 1 min: Tactile Stimulation SCORE 1 MIN: 8 Heart Rate 5 min: >100 bpm Resp Effort 5 min: Good Cry Reflex Irritability 5 min: Cough or Sneeze or Pulls Away Muscle Tone 5 min: Active Motion Color 5 min: Body [place], Extremities Blue Resuscitation Effort 5 min: Tactile Stimulation SCORE 5 MIN: 9 INFANT INFORMATION BABY A Gestational Age at Delivery: 34.0 Gestational Status: Infant Outcome : Liveborn Infant Condition : Stable Sex: Female IDENTIFICATION/MEDS BABY A ID Band Number: [id number] ID Band Location: Left Leg; Left Arm WEIGHT/LENGTH BABY A Birthweight (gms): 2775 Infant Weight (lb): 6 Infant Weight (oz): 2 CORD INFORMATION BABY A No. Cord Vessels: 3 Nuchal Cord : N/A Cord Blood Taken: N/A Infant Suction: None ASSESSMENT BABY A Infant Complications: None Physical Findings at Delivery: Within Normal Limits Respirations: Appears Normal Metal Cutter/ALS Called : Yes Care By: Dr. Correa/Gil/Rachna Transferred To: NICU
[2018-07-12 12:47] VITALS: RESP 20
[2018-07-12] MEDS ORDERED: Lactated Ringer's 1,000 ML IV ONE (13:00)
[2018-07-12] MEDS ORDERED: Naloxone 0.4 mg/ml Inj (Adult) IVP PRN (13:41)
[2018-07-12] MEDS: Lactated Ringer's 1,000 ML IV SCH (19:30)
[2018-07-13] MEDS: Lactated Ringer's 1,000 ML IV SCH ×2 (03:16→17:03)
--- NOTE | 2018-07-13 04:41 | OP ---
Copied To: Kevin Christy MD Attending MD: Kevin Christy MD PROCEDURE DATE: 07/12/2018 PREOPERATIVE DIAGNOSIS: Placenta accreta at 34 weeks' gestational age. POSTOPERATIVE DIAGNOSIS: Placenta accreta at 34 weeks' gestational age. OPERATION PERFORMED: Repeat low-flap transverse section via Pfannenstiel incision, supracervical hysterectomy, and repair of cystotomy. SURGEON: Kevin Christy MD SPORTS MARKETING COORDINATOR: Dr. Llamas. Dr. Llamas was present from the beginning of the procedure to the end of procedure. Dr. Llamas was integral in exposing the surgical field, controlling intraoperative bleeding, removal of intraoperative adhesions, manual delivery of the infant, and completion of hysterectomy. ANESTHESIOLOGIST: Dr. Ortiz. ANESTHESIA: Combined epidural and spinal, general anesthesia. OPERATIVE FINDINGS: The patient delivered a viable infant female with Apgars of 8 and 9 at 1 and 5 minutes respectively, severe abdominal and pelvic adhesions, severe adhesions between uterus and omentum and anterior abdominal wall. Evidence of placenta percreta with placenta visible through entire uterine wall. Bladder injury encountered at the dome of bladder, repaired intraoperatively. IV FLUID INTAKE: 4500 mL of lactated Ringer's, 2 units of packed red blood cells infused intraoperatively. ESTIMATED BLOOD LOSS: 2000 mL. URINE OUTPUT: 600 mL. COMPLICATIONS: Injury to dome of bladder, repaired intraoperatively. DESCRIPTION OF PROCEDURE: The patient was taken to the operating room where epidural and spinal combined anesthesia were found to be adequate. The patient was prepped and draped in normal sterile fashion in dorsal supine position with leftward tilt. A Pfannenstiel skin incision was made with a scalpel. This was carried down through to the underlying layer of fascia with a scalpel. Midline defect was made in the fascial layer with scalpel. The fascial incision was then extended bilaterally sharply with curved Jimenez scissors. The fascial layer was from the underlying rectus muscles, both bluntly and sharply with curved Jimenez scissors. The rectus muscles were at the midline. The peritoneum was then identified, tented up with the Gretchen clamps x2, and entered sharply with Metzenbaum scissors. This peritoneal incision was then extended superiorly and inferiorly with good visualization of the urinary bladder. At this point in the operation, severe adhesions were found between uterus and omentum and anterior abdominal wall. Numerous adhesions were removed sharply and bluntly under direct visualization. After removal of adhesions, the anterior surface of the uterus was encountered. The anterior surface of the uterus was found to be almost entirely placental wall. Evidence of placenta percreta was obvious. The lower portion of the anterior uterine wall and uterus was incised with the scalpel. This incision was extended and developed bluntly. The 's head was delivered atraumatically. Nose and mouth were suctioned with bulb suction. The cord was clamped and cut. The infant was handed off to the waiting pediatricians. A portion of the placenta was removed from the uterus due to placenta percreta, the surgery was continued with completion of the hysterectomy. The uterine incision was closed with a running stitch of #0 Vicryl. The round ligaments were isolated bilaterally, suture ligated with #0 Vicryl x2 bilaterally, and transected bilaterally. The anterior surface of the broad ligament was dissected off of the anterior surface of the uterus. At this point in the surgery, a defect in the dome of the bladder was encountered. The suspensory ligament of the ovaries and fallopian tubes was isolated bilaterally, electrocauterized, and transected with LigaSure device bilaterally. These areas were found to be hemostatic. The uterine arteries were skeletonized bilaterally, clamped with Victoriano clamp x2 bilaterally, transected with curved Jimenez scissors bilaterally, and suture ligated with #0 Vicryl x2 bilaterally. The uterus was removed from the cervix at this level sharply with electrocautery. The uterine cuff was suture ligated with #0 Vicryl in a series of [id number] stitches. After suture ligation of the uterine cuff, this area was found to be hemostatic. Attention was then turned to the bladder defect. The edges of the bladder defect were suture ligated with 2.0 Rapide in a running stitch. A second layer of the same suture was used to imbricate the first. After repair of the bladder defect, the bladder was insufflated with approximately 350 mL of methylene blue. The repair was found to be intact and hemostatic. The abdomen and pelvis were irrigated with copious amounts of warm normal saline. Reinspection of all surgical pedicles were proved hemostasis. All instruments were removed from the patient. The peritoneal layer was closed with a running stitch of 2-0 chromic. The rectus muscles were reapproximated with a running stitch of 2-0 chromic. The fascial layer was closed with a running stitch of #0 Vicryl. Subcutaneous tissue was closed with a running stitch of 3-0 plain. The skin was closed with celia. The patient tolerated the procedure well. All sponge, lap, and needle counts were correct x2. The patient was given 1 g of Ancef just prior to the beginning of the procedure. Other than the bladder injury, there were no complications. The patient was taken to the recovery room in awake and stable condition. Kevin Christy MD
[2018-07-13 06:41] LABS: HEMOGLOBIN 7.9 g/dL (12.0-16.0); MEAN CELL VOLUME 77.8 fl (81.0-99.0); MEAN CORPUSCULAR HEMOGLOBIN 25.9 pg (27.0-31.0); MEAN CORPUSCULAR HGB CONC 33.3 g/dL (33.0-37.0); RBC 3.03 Mil/uL (3.80-5.20); RED CELL DISTRIBUTION WIDTH 18.1 % (11.5-14.5); WHITE BLOOD COUNT 10.4 K/uL (4.8-10.8)
[2018-07-13] MEDS: Oxycodone/Acetaminophen 5/325 mg Tab PO PRN ×3 (09:51→19:22)
[2018-07-13] MEDS: Multivitamin With Minerals Tab PO SCH (09:51)
[2018-07-13] MEDS: Benzocaine/Menthol (Cepacol) Lozenge PO PRN ×2 (13:42→17:00)
[2018-07-14] MEDS: Oxycodone/Acetaminophen 5/325 mg Tab PO PRN ×2 (00:01→03:46)
[2018-07-14] MEDS: Multivitamin With Minerals Tab PO SCH (08:37)
[2018-07-14] MEDS: Simethicone 80 mg Chewtab PO PRN ×2 (08:38→16:55)
--- NOTE | 2018-07-14 10:41 | OBPPN ---
Datetime: 07/13/2018 10:35 PP Pain Prov: Within normal limits PP Nausea Prov: Denies PP Flatus Prov: Yes PP Breasts Prov: Normal PP Heart Prov: Normal PP Lungs Prov: Normal PP Abdomen/Uterus Prov: Normal PP Lochia Prov: Normal PP Vulva/Perineum Prov: Normal PP CVA Tenderness Prov: Normal PP Extremities Prov: Normal PP Comments Phys Exam Prov: Abd: Soft, NT, BS- present Incision clean and dry Patient is up and moving around PP Plan Prov: Continue present management PP Impression Other Prov: S/P Hysterectomy PP Progress Note Prov: S/P Hysterectomy for placenta accreta., POD #1 Clinically Stable. Plan: Continue care Keep Folleys catheter in place Encourage ambulation. Vital Signs Provider PP: Reviewed
[2018-07-15] MEDS: Oxycodone/Acetaminophen 5/325 mg Tab PO PRN ×2 (02:22→08:33)
[2018-07-15] MEDS: Multivitamin With Minerals Tab PO SCH (08:30)
--- NOTE | 2018-07-15 11:46 | OBPPN ---
Datetime: 07/15/2018 11:44 PP Pain Prov: Within normal limits PP Nausea Prov: Denies PP Flatus Prov: Yes PP BM Prov: No PP Breasts Prov: Normal PP Heart Prov: Normal PP Lungs Prov: Normal PP Abdomen/Uterus Prov: Normal PP Lochia Prov: Normal PP Vulva/Perineum Prov: Normal PP CVA Tenderness Prov: Normal PP Extremities Prov: Normal PP Comments Phys Exam Prov: Incision clean/dry/intact +banerjee draining clear urine PP Plan Prov: Discharge PP Progress Note Prov: Patient denies CP, no SOB, no N/V, tolerating PO diet, ambulating well, +fole y draining clear urine, mild lochia, abdominal pain tolerable with meds A/P POD #3 1. Discharge home 2. Discharge instructions reviewed Vital Signs Provider PP: Reviewed; Within Normal Limits Datetime: 07/14/2018 14:20 PP Impression Prov: Normal progression
--- NOTE | 2018-07-15 11:48 | OBDCSUM ---
Datetime: 07/15/2018 11:45 Discharged to, Provider: Home Follow up at, Provider: OB Disch Instr Activity: Normal activity Disch Instr Diet: Regular Discharge Instructions, Provider: Routine instructions given Discharge Diagnosis, Provider: Term Delivered Discharge Time: 07/15/2018 11:45 Follow up in weeks, Provider: desiree catalan Disch Referrals: None Contraception discussed, Prov: Yes Discharge Comment, Provider: +leg bag with banerjee to be discharged with Instructions and precautions reviewed Discharge Diagnosis Prov Other: C-hysterectomy
[2018-07-15 23:09] VITALS: BP 127/78; PULSE 101; TEMP 98.4; O2SAT 98
== END 2018-07-15 13:45 | disposition home or self-care (01) | DRG 371 ==
LOC: H.EROB2 06:14 → H.L&D 06:33 → H.OB/GYN 14:25
PROVIDERS: ADMIT Obstetrics & Gynecology; ATTEND Obstetrics & Gynecology
PROC: 10D00Z1 Extraction of Products of Conception, Low, Open Approach (ICD-10-PCS; principal; 2018-07-12)
PROC: 0UT90ZL Resection of Uterus, Supracervical, Open Approach (ICD-10-PCS; 2018-07-12)
PROC: 0TQB0ZZ Repair Bladder, Open Approach (ICD-10-PCS; 2018-07-12)
PROC: 30233N1 Transfusion of Nonautologous Red Blood Cells into Peripheral Vein, Percutaneous Approach (ICD-10-PCS; 2018-07-12)
PROC: 4A1HXCZ Monitoring of Products of Conception, Cardiac Rate, External Approach (ICD-10-PCS; 2018-07-12)
DX: O43.213 Placenta accreta, third trimester (principal); O60.14X0 Preterm labor third trimester with preterm delivery third trimester, not applicable or unspecified; O71.5 Other obstetric injury to pelvic organs; O34.211 Maternal care for low transverse scar from previous cesarean delivery; O99.89 Other specified diseases and conditions complicating pregnancy, childbirth and the puerperium; N73.6 Female pelvic peritoneal adhesions (postinfective); Z3A.34 34 weeks gestation of pregnancy; Z37.0 Single live birth; Z86.32 Personal history of gestational diabetes